=== PATIENT | male | born 1970 | race Caucasian/White ===

== ENCOUNTER 2018-10-20 20:23 | Emergency (ER) | payer OTHER, MEDICAID ==
[~2018-10-20] VITALS: Ht 177.8 cm; Wt 84.1 kg
[2018-10-20 20:25] VITALS: BP 144/98
--- NOTE | 2018-10-20 20:30 | NUR ---
BIB [facility] WITH [facility], PT FOUND HITTING HEAD AGAINST CELL BARS FOR STATED SI ATTEMPT. PT STATES "WHEN I GET OUT OF INTERMEDIATE I WILL PROBABLY JUST KILL MYSELF", PT REFUSING TO ANSWER ANY MEDICAL HISTORY QUESTIONS "IN FRONT OF THESE FUCKERS" POINTING AT GUARDS. PT THEN STATES HE WAS JUST [facility].
[2018-10-20] MEDS ORDERED: LIDOCAINE-MPF 1%, 5ML ONE (21:14)
[2018-10-20] MEDS ORDERED: DIPH,PERTUSS(ACELL),TET VAC/PF 0.5 ML IM-VACC ONE ×2 (21:14→21:30)
[2018-10-20] MEDS ORDERED: LIDOCAINE-MPF 1%, 5ML INFIL ONE (21:30)
[2018-10-20] MEDS ORDERED: PLEASE ENTER ALLERGIES MC SCH (21:30)
--- NOTE | 2018-10-20 21:36 | NUR ---
MED STUDENT AT BEDSIDE FOR SUTURES
[2018-10-20] MEDS ORDERED: NEOSPORIN OINT. PKT 1 PACKET ONE (23:39)
== END 2018-10-20 23:54 | disposition home or self-care (01) ==
LOC: ED 20:59
DX: S01.01XA Laceration without foreign body of scalp, initial encounter (principal); S01.81XA Laceration without foreign body of other part of head, initial encounter; X58.XXXA Exposure to other specified factors, initial encounter; Y93.89 Activity, other specified; Y92.89 Other specified places as the place of occurrence of the external cause; Y99.8 Other external cause status
CPT/HCPCS: 12032; 90471; 90715